=== PATIENT | female | born 1985 | race Caucasian/White ===

== ENCOUNTER 2019-03-17 17:01 | Emergency (ER) | payer BC, SELFPAY ==
[2019-03-17 17:18] VITALS: BP 100/43; PULSE 65; RESP 18; TEMP 36.6; O2SAT 99
--- NOTE | 2019-03-17 17:29 | ED.GENADULT ---
HPI - General Adult General Chief complaint: Abdominal Pain Stated complaint: allen/diarrhea Time Seen by Provider: 03/17/19 17:29 Source: patient and RN notes reviewed History of Present Illness HPI narrative: Patient is a 33-year-old female presents the urgent care with complaints of upset stomach and diarrhea. Patient states that symptoms have since subsided but she missed work and thought she should get it checked out in order to go back . Patient states she is also been having intermittent headaches. States that she has been stressed out and depressed over her dog's this weekend. Patient states that she was unable to go to work due to being so upset about her dog and was told she needed a work note. Patient denies of any symptoms at this time. Denies of upset stomach, diarrhea, headache, abdominal pain. Patient is tearful but otherwise no acute distress noted. Patient had a plan of care. Related Data Home Medications Medication Instructions Recorded Confirmed acetaminophen [Tylenol] 03/17/19 Allergies Allergy/AdvReac Type Severity Reaction Status Date / Time No Known Allergies Allergy Verified 03/17/19 17:24 Review of Systems Review of Systems: Narrative: CONSTITUTIONAL: Denies fever, chills, or sweats. EYES: Denies visual changes, redness, or discharge. ENT: Denies rhinorrhea, congestion, sore throat, or otalgia. CARDIOVASCULAR: Denies chest pain, palpitations, or edema. RESPIRATORY: Denies cough or dyspnea. GASTROINTESTINAL: Reports of resolved nausea, diarrhea GENITOURINARY: Denies dysuria or hematuria. SKIN: Denies rash or itching. MUSCULOSKELETAL: Denies back pain, joint pain, or myalgia. NEUROLOGIC: Reports of intermittent headaches PMFSH Comments At the time of my signature, I reviewed and agree with the nursing past medical, surgical, social, and family history. There is no relevant family history pertinent to the patient complaint. Exam Narrative: Exam Narrative: GENERAL: This is a well-nourished, well-developed patient, tearful HEAD: normocephalic, atraumatic. EYES: PERRL. Sclera clear/white. Vision is grossly intact. EARS: External ears normal NOSE: External nose normal with no obvious nasal discharge THROAT: Mucous membranes moist NECK: Neck supple CARDIOVASCULAR: Regular rate and rhythm without murmurs, gallops, or rubs. RESPIRATORY: Clear to auscultation. Breath sounds equal bilaterally. No wheezes, rales, or rhonchi. GASTROINTESTINAL: Abdomen soft, non-tender, nondistended. Bowel sounds are active. SKIN: warm, intact with no suspicious lesions or rash, good texture and turgor. NEURO: awake, alert, and oriented to person, place and time. There were no obvious focal neurologic abnormalities. EXTREMITIES: No clubbing, cyanosis, or edema. Course Vital Signs Vital signs: Vital Signs Temperature 97.9 F 03/17/19 17:18 Pulse Rate 65 03/17/19 17:18 Respiratory Rate 18 03/17/19 17:18 Blood Pressure 100/43 L 03/17/19 17:18 Pulse Oximetry 99 03/17/19 17:18 Temperature 97.9 F 03/17/19 17:18 Pulse Rate 65 03/17/19 17:18 Respiratory Rate 18 03/17/19 17:18 Blood Pressure 100/43 L 03/17/19 17:18 Pulse Oximetry 99 03/17/19 17:18 Reviewed Medical Decision Making MDM Narrative Medical decision making narrative: Advised the patient to rest and use Tylenol/ibuprofen for headaches as needed. Eat a bland diet and increase water intake. Follow-up with PCP within 2 to 5 days if worsening symptoms or failure to improve. Differential Diagnosis Differential Diagnosis: Gastroenteritis, cholecystitis, appendicitis Vital Signs Vital Signs: Vital Signs Temperature 97.9 F 03/17/19 17:18 Pulse Rate 65 03/17/19 17:18 Respiratory Rate 18 03/17/19 17:18 Blood Pressure 100/43 L 03/17/19 17:18 Pulse Oximetry 99 03/17/19 17:18 Temperature 97.9 F 03/17/19 17:18 Pulse Rate 65 03/17/19 17:18 Respiratory Rate 18 03/17/19 17:18 Blood Pressure 100/
== END 2019-03-17 17:44 | disposition home or self-care (01) ==
PROVIDERS: Emergency Provider Nurse Practitioner Family; PCP Emergency Medicine
DX: F43.9 Reaction to severe stress, unspecified (principal); Z63.4 Disappearance and death of family member
CPT/HCPCS: 99211; G0463

== ENCOUNTER 2023-01-27 14:50 | Emergency (ER) | payer BC, SELFPAY ==
--- NOTE | ~2023-01-27 | US_ITS ---
EXAMINATION: US venous doppler LE RT DATE: 01/27/2023 16:20 INDICATION: leg swelling . TECHNIQUE: Grayscale images without and with compression and Doppler images of the right lower extrem ity veins were obtained. COMPARISON: None FINDINGS: The right common femoral vein, profunda (deep) femoral vein, femoral vein, popliteal vein, peroneal v ein, posterior tibial veins, and greater saphenous vein are patent. IMPRESSION: Patent right lower extremity veins. No evidence of deep venous thrombosis. Reviewed, dictated and finalized at location [facility] [employer]
[2023-01-27 14:52] VITALS: BP 122/54; PULSE 87; RESP 16; TEMP 36.8; O2SAT 100
--- NOTE | 2023-01-27 15:16 | ED.EXTPRO ---
HPI - Extremity Problem General Chief complaint: Extremity Problem,Nontraumatic Stated complaint: RLE pain/warmth Time Seen by Provider: 01/27/23 15:15 History of Present Illness HPI Narrative: Patient is a healthy 37-year-old female here with right leg pain. She states that the pain began yesterday after being at work. She notes that it is a burning sensation in the mid thigh down behind the knee. Pain is located on the medial aspect And is occasionally associated with a popping sensation in her knee. She denies any prodromal traumatic injury. She does believe that the leg seemed to be more swollen yesterday, this seems to have improved today. The pain also seems to have somewhat improved and is now more localized around the medial aspect of the knee. She denies any prior PE or DVT. She denies any shortness of breath. She does not use oral contraceptives, she is a nonsmoker, no recent travel or surgery. Related Data Home Medications Medication Instructions Recorded Confirmed acetaminophen 325 mg tablet 03/17/19 (Tylenol) Allergies Allergy/AdvReac Type Severity Reaction Status Date / Time No Known Allergies Allergy Verified 01/27/23 15:05 Review of Systems Review of Systems: All systems reviewed & are unremarkable except as noted in HPI and below Exam Narrative: GENERAL: Well-appearing, well-nourished, and in no acute distress. HEAD: Normocephalic, atraumatic. EYES: PERRLA and EOMI. ENT: Nares clear. Mucous membranes moist. NECK: Supple. CHEST: Clear to auscultation. No respiratory distress. HEART: Regular rate and rhythm. Normal peripheral pulses. ABDOMEN: Soft, nontender, nondistended. EXTREMITIES: Normal range of motion. Some mild tenderness over the medial aspect of the right knee. No joint effusion appreciated. No skin changes appreciated. Normal range of motion of the knee. No edema appreciated on the right leg. Strong DP pulse. SKIN: Warm, dry, no rash. NEURO: No focal deficits. Alert and oriented x3. PSYCH: Normal mood and affect. Course Course Emergency Course: Chart review performed. She is here for a popping sensation behind left knee with pain and warm sensation since yesterday. Triage vitals normal. Patient seen evaluated, nontoxic appearing. She has atraumatic right leg pain. No notable swelling, erythema, warmth today. No suspicion for infection. No indication for x-rays given lack of trauma. No indication for blood work at this time. Venous Doppler ordered to evaluate for possible DVT. Patient has no risk factors for PE/DVT. Lower extremity Doppler negative. On attempt to re-evaluate the patient and discuss results was notified by nursing staff that she left without completion of service as she needed to go home because her mother was driving and she cannot drive at night. I was able to contact the patient on her cell phone and updated her on her results. I did advise her to call her primary care doctor on Sunday morning and follow closely for re-evaluation. Vital Signs Vital signs: Vital Signs Temperature 98.3 F 01/27/23 14:52 Pulse Rate 87 01/27/23 14:52 Respiratory Rate 16 01/27/23 14:52 Blood Pressure 122/54 L 01/27/23 14:52 Pulse Oximetry 100 01/27/23 14:52 Oxygen Delivery Room Air 01/27/23 14:52 Temperature 98.3 F 01/27/23 14:52 Pulse Rate 87 01/27/23 14:52 Respiratory Rate 16 01/27/23 14:52 Blood Pressure 122/54 L 01/27/23 14:52 Pulse Oximetry 100 01/27/23 14:52 Oxygen Delivery Room Air 01/27/23 14:52 MDM - Extremity (Nontraumatic) Imaging Data Radiologist's impression: EXAMINATION: US venous doppler LE RT DATE: 01/27/2023 16:20 INDICATION: leg swelling . TECHNIQUE: Grayscale images without and with compression and Doppler images of the right lower extremity veins were obtained. COMPARISON: None FINDINGS: The right common femoral vein, profunda (deep) femoral vein, femoral vein, popli
[2023-01-27] MEDS: ACETAMINOPHEN 325 MG TABLET 650 MG PO (16:41)
--- NOTE | 2023-01-27 16:55 | PC.NURSE ---
Patient to desk at this time and stated she can't wait and needed to leave due to being unable to drive at night. patient is alert and oriented x4. Ambulatory with steady gait. MD Anthony notified at this time.
== END 2023-01-27 16:58 | disposition left against medical advice (07) ==
PROVIDERS: Emergency Provider Student in an Organized Health Care Education/Training Program; PCP Emergency Medicine
DX: M79.651 Pain in right thigh (principal)
CPT/HCPCS: 93971; 99284; A9270